=== PATIENT | female | born 1960 | race Caucasian/White ===

== ENCOUNTER → 2017-04-29 | Outpatient (CLI) | payer BC, SELFPAY | PROVIDERS: Family Provider Family Medicine; Visit Provider Nurse Practitioner Obstetrics & Gynecology | DX: Z12.31 Encounter for screening mammogram for malignant neoplasm of breast (principal) | CPT/HCPCS: 77067; G0202 ==

== ENCOUNTER → 2017-07-25 10:57 | Outpatient (POV) | payer BC, SELFPAY | PROVIDERS: Visit Provider Physician Assistant | DX: Z00.00 Encounter for general adult medical examination without abnormal findings (principal) ==

== ENCOUNTER → 2018-07-12 15:34 | Outpatient (CLI) | payer BC, SELFPAY ==
--- NOTE | 2018-07-12 15:42 | MM_ITS ---
MM Dig screening mamm BI w/CAD CAD Screening COMPARISON: Digital mammograms with CAD 04/29/2017 and 04/26/2016 INDICATION: There is a history of breast cancer in the patient's sister diagnosed in her 40s and in maternal aunts. TECHNIQUE: Standard CC and MLO images were obtained. R2 CAD reviewed. FINDINGS: Moderate diffuse fiber glandular densities are seen in both breasts. There are possible new nodular densities in the central portion of the right breast. Recommend the patient return for 6 spot compression MLO and CC views and ultrasound may be necessary as well. There are few scattered benign-appearing microcalcifications in each breast. There are no suspicious microcalcifications. IMPRESSION: Moderate diffuse breast density with possible asymmetric densities right breast BI-RADS Category: 0 Need Additional Imaging Evaluation RECOMMENDED FOLLOW-UP: IMM - IMMEDIATE FOLLOW-UP RECOMMENDED (A letter has been sent to the patient regarding results of the study.)
== END ==
PROVIDERS: PCP Family Medicine; Visit Provider Nurse Practitioner Obstetrics & Gynecology
DX: Z12.31 Encounter for screening mammogram for malignant neoplasm of breast (principal)
CPT/HCPCS: 77067

== ENCOUNTER → 2018-07-28 13:12 | Outpatient (CLI) | payer BC, SELFPAY ==
--- NOTE | 2018-07-28 13:15 | MM_ITS ---
MM Dig mamm DX unilat RT CAD, US breast RT complete Ordering Physician: Deangelo Alamo MD Patient Age: 58 years Female COMPARISON: 07/12/2018, 04/29/2017 INDICATION: Follow-up abnormal screening study TECHNIQUE: Problem-solving views performed of the right breast along with right breast ultrasound FINDINGS: There is average fibroglandular tissue. Scattered benign-appearing calcifications are present. An area of asymmetry noted in the medial aspect of the right breast was noted initially but does appear to compress out on an additional spot compression view more posterior. There was some asymmetric density in the deep aspect of the right breast medially which did appear to compress out on a focal spot compression view. No malignant appearing mass or malignant appearing microcalcification is evident. Right breast ultrasound: There is a 5 mm hypoechoic nodule at 6:00. The correa are slightly thickened and there is posterior acoustical shadowing. While this may only represent a cyst, one cannot exclude a solid lesion especially with posterior acoustical shadowing. Ultrasound-guided fine-needle aspiration suggested. If this does not aspirate and core biopsy or mammotome biopsy could be performed. A 4 mm cyst is present at 9:00. IMPRESSION: Asymmetric areas in the right breast do appear to compress out on the focal spot compression views. There is a complex nodule at 6:00 on the ultrasound for which fine needle aspiration is suggested BI-RADS Category: 4 Suspicious Abnormality-Biopsy Considered RECOMMENDED FOLLOW-UP: BIO - BIOPSY RECOMMENDED A letter has been sent to the patient regarding results of the study.)
== END ==
PROVIDERS: PCP Family Medicine; Visit Provider Nurse Practitioner Obstetrics & Gynecology
DX: R92.8 Other abnormal and inconclusive findings on diagnostic imaging of breast (principal)
CPT/HCPCS: 76641; 77065

== ENCOUNTER → 2018-08-17 09:57 | Outpatient (CLI) | payer BC, SELFPAY ==
--- NOTE | 2018-08-17 10:29 | US_ITS ---
US FNA Breast HISTORY: Complex nodule 6:00 region the right breast ORDERING PHYSICIAN: Deangelo Alamo MD PATIENT AGE: 58 years COMPARISON: 07/28/2018 TECHNIQUE: Following obtaining informed consent, using aseptic technique and local anesthesia with buffered lidocaine, fine-needle aspiration was performed of the nodule of interest using sonographic guidance in the 6:00 region right breast near the nipple.. One pass was made into the nodule with a 27-gauge needle. No visible aspirate obtained. Specimen was given to cytology. Following this, a small incision was made and a core biopsy was performed. 2 cores were obtained one with a 19-gauge needle and one with an 18-gauge needle The patient tolerated the procedure well without evidence of immediate complications and left the ultrasound suite in stable condition. CYTOLOGY:Negative for malignant cells Pathology core biopsy: No evidence of malignancy. Benign fibrous colonized stroma IMPRESSION: Uneventful fine needle aspiration and core biopsy of right breast showing benign findings. Recommend 6 month sonographic follow-up to confirm stability
== END ==
PROVIDERS: PCP Family Medicine; Visit Provider Nurse Practitioner Obstetrics & Gynecology
DX: N63.10 Unspecified lump in the right breast, unspecified quadrant (principal)
CPT/HCPCS: 19083; 10005; 76642; 76942

== ENCOUNTER → 2019-04-09 13:51 | Outpatient (CLI) | payer BC, SELFPAY ==
--- NOTE | 2019-04-09 14:15 | US_ITS ---
PROCEDURE: US BREAST RT COMPLETE CLINICAL INDICATION: 6 MOS FU TO BX Follow-up in a COMPARISON: FNABRE US FNA Breast from 08/17/2018 FINDINGS: At 6 o'clock there is a 4 x 2 mm cyst. This is smaller than when compared to the previous exam. No other significant anomalies are evident. IMPRESSION: Benign-appearing cyst at 6 o'clock slightly smaller compared to the previous study. BI-RADS category 2 benign findings. Recommend resume screening mammogram July 2019 Dictated by: Will Sawant MD 04/17/2019 11:23 Electronically signed by Will Sawant MD in [place] 04/17/2019 11:23
== END ==
PROVIDERS: PCP Family Medicine; Referring Provider Nurse Practitioner Obstetrics & Gynecology; Visit Provider Nurse Practitioner Obstetrics & Gynecology
DX: R92.8 Other abnormal and inconclusive findings on diagnostic imaging of breast (principal)
CPT/HCPCS: 76641

== ENCOUNTER → 2020-05-05 10:47 | Outpatient (CLI) | payer BC, SELFPAY ==
--- NOTE | 2020-05-05 10:47 | MM_ITS ---
PROCEDURE: MM DIG SCREENING MAMM BI W/CAD Digital Breast Tomosynthesis Included CLINICAL INDICATION: Routine Screening Mammogram Is history of breast cancer in patient's sister and paternal aunts. There has been a previous biopsy right breast for benign disease. COMPARISON: MG DMSB DIG MAMM-SCREEN CARINA W/CAD from 04/29/2017 MG SCBI MM Dig screening mamm BI w/CAD from 07/12/2018 MG DXRT MM Dig mamm DX unilat RT CAD from 07/28/2018 TECHNIQUE: Standard CC and MLO images and 3D Tomosynthesis was obtained. R2 CAD reviewed. FINDINGS: Scattered diffuse fibroglandular densities are seen in both breasts. Stable slightly asymmetric glandular elements are seen outer quadrant right breast. There are scattered microcalcifications in each breast many of which are cutaneous. There is no new or suspicious lesion in either breast no suspicious microcalcifications. IMPRESSION: Stable exam with no suspicious lesions seen BI-RAD Category: 2 Benign Finding(s) FOLLOW-UP: 1YR 1 Year Follow-up (A letter has been sent to the patient regarding results of the study.) Dictated by: Dr. Renato Mccurdy MD 05/07/2020 14:51 Dr. Renato Mccurdy MD in [place] 05/07/2020 14:51
== END ==
PROVIDERS: PCP Family Medicine; Visit Provider Nurse Practitioner Obstetrics & Gynecology
DX: Z12.31 Encounter for screening mammogram for malignant neoplasm of breast (principal)
CPT/HCPCS: 77063; 77067

== ENCOUNTER → 2020-07-10 12:51 | Outpatient (CLI) | payer BC, SELFPAY ==
--- NOTE | 2020-07-10 12:54 | XR_ITS ---
PROCEDURE: XR DEXA AXIAL SKELETON CLINICAL HISTORY: POST MENOPAUSAL COMPARISON: No exams were available for comparison FINDINGS: The right hip BMD is 0.824 with a T-score of -0.2. The left hip BMD is 0.762 with a T-score of -0.8. The lumbar spine BMD is 1.067 with a T-score of 0.2. IMPRESSION: This patient is considered normal according to the World Health Organization criteria. Fracture risk is low. Based on these results a follow-up exam is recommended in 2 year. Dictated by: Will Sawant MD 07/11/2020 03:51 Will Sawant MD in [place] 07/11/2020 06:20
== END ==
PROVIDERS: PCP Family Medicine; Visit Provider Physician Assistant
DX: Z13.820 Encounter for screening for osteoporosis (principal); Z78.0 Asymptomatic menopausal state
CPT/HCPCS: 77080

== ENCOUNTER → 2020-07-17 12:05 | Outpatient (CLI) | payer BC, SELFPAY ==
--- NOTE | 2020-07-17 12:08 | XR_ITS ---
PROCEDURE: XR FOOT WT BEARING RT 3V CLINICAL INDICATION: pain COMPARISON: No exams were available for comparison FINDINGS: No fracture or dislocation. No lytic or blastic change. There is normal mineralization. Minimal osteoarthritic change 1st MTP joint with minimal hypertrophy of the distal aspect of the 1st metatarsal. Other findings:None. 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
--- NOTE | 2020-07-17 12:08 | XR_ITS ---
PROCEDURE: XR FOOT WT BEARING LT 3V CLINICAL INDICATION: pain COMPARISON: No exams were available for comparison FINDINGS: No fracture or dislocation. No lytic or blastic change. There is normal mineralization. The joint spaces are well-preserved. No significant degenerative/arthritic changes. No erosive changes evident. Other findings:None. IMPRESSION: No acute findings. Dictated by: Will Sawant MD 07/17/2020 16:53 Will Sawant MD in [place] 07/17/2020 16:53
== END ==
PROVIDERS: PCP Family Medicine; Visit Provider Podiatrist
DX: M79.672 Pain in left foot (principal); M79.671 Pain in right foot
CPT/HCPCS: 73630

== ENCOUNTER → 2020-08-13 09:53 | Outpatient (CLI) | payer BC, SELFPAY ==
[2020-08-13 11:00] LABS: Coronavirus 19 IgG Antibody Negative (Negative); Coronavirus 19 IgM Antibody Negative (Negative)
== END ==
PROVIDERS: Visit Provider Internal Medicine Gastroenterology
DX: Z01.812 Encounter for preprocedural laboratory examination (principal); Z20.822 Contact with and (suspected) exposure to COVID-19; Z12.11 Encounter for screening for malignant neoplasm of colon
CPT/HCPCS: 36415; 86328

== ENCOUNTER 2020-08-15 08:29 | Day surgery (SDC) | payer BC, SELFPAY ==
[2020-08-05 10:32] VITALS: BMI 33.8
[2020-08-15 08:47] VITALS: BP 111/91; PULSE 81; RESP 16; TEMP 36.5; O2SAT 95
[2020-08-15 09:28] VITALS: O2SAT 97
--- NOTE | 2020-08-15 09:39 | HMH.ANESCL ---
[facility] Anesthesia Checklist - Structural Data Admitted From: Home Planned Operative Procedure/s: colonoscopy Consent for Planned Operative Procedure(s) Verified: Yes - Airway Assessment C-Spine Mobility Assessed: Yes TMJ Mobility Assessed: Yes Dentition: Good Dentition - Neurological Assessment Level of Consciousness: Awake, Alert, Appropriate - Anesthesia Plan Anesthesia Risk discussed: Yes Anesthesia Plan: Verified ASA Class: II Anesthesia Type: MAC [facility] History I have reviewed the patient's past medical history: Yes Medical History: Reports:: Hyperlipidemia Denies:: Cancer, Diabetes Mellitus Type 1, Diabetes Mellitus Type 2, Internal Pacemaker, MRSA, Seizures *Have you ever received a pneumonia vaccine?: Yes *Have you received a flu vaccine this season?: Yes Other Medical History: Reports: Anemia Anesthesia experience/problems:: none Laterality Cases: Right: Lumpectomy, Bilateral: Other Other Surgeries: Yes: Dilation and Curettage. No: Pacemaker Amputation: No Fractures: Yes - *Social History Last grade of school completed: 11th or 12th Smoking Status: Never smoker Alcohol Intake: never Substance Use Type: denies use *Occupational Status:: employed Housing: house Household Members: spouse *Travel in the last 8 weeks: None Family Hx:: Diabetes, Hypertension, Cancer
--- NOTE | 2020-08-15 09:59 | P.PCN_ITS ---
[facility] Procedure Note Procedure Note:: Colonoscopy Procedure Report: Colonoscopy with cold snare polypectomy Endoscopist: Italo Magdaleno II, MD Referring physician: Susan SANTIAGO/Mode Betts MD Date of Procedure: August 15, 2020 Equipment: Olympus 190 variable stiffness pediatric colonoscope Sedation: MAC sedation Indication: Mrs. Baker is a 60-year-old female who is here for follow-up screening/surveillance colonoscopy. She did have a normal colonoscopy at age 48. She reports no abdominal pain, weight loss, change in her bowel habits or rectal bleeding. She reports no family history of colon cancer. Procedure: Prior to the procedure, a history and physical exam was performed, and patient's medications and allergies were reviewed. The risks, benefits and alternatives of the sedation and procedure were discussed with the patient. All questions were answered and informed consent was obtained. The patient was brought to the procedure room. Patient identification and proposed procedure were verified by the physician and the nurse. The patient was placed in a left lateral decubitus position and the scope was passed under direct vision. Throughout the procedure, the patient's blood pressure, pulse, and oxygen saturations were monitored continuously. The colonoscopy was accomplished without difficulty. The patient tolerated the procedure well. Findings: On digital rectal examination there was normal rectal tone. There were no external hemorrhoids. The colonoscope was introduced through the anal canal to the rectum and advanced to the cecum. The ileocecal valve and appendiceal orifice were identified. The scope was advanced a short distance into the ileum which appeared grossly normal. The scope was then withdrawn into the colon. The cecum, ascending and transverse colon were grossly normal. There was a 4 mm polyp in the descending colon that was removed via cold snare polypectomy. The remaining sigmoid and rectum were grossly normal. There were no other mucosal abnormalities identified. Upon retroflexion within the rectum there were grade 1 internal hemorrhoids.The preparation was excellent throughout with [place] Preparation Score of 9. The cecal time was 12 minutes. Impression: 1. Diminutive descending colon polyp 2. Grade 1 internal hemorrhoids Plan: I will follow up the polyp pathology and recommend repeat colonoscopy again in 7-10 years based upon the polyp histology. I would encourage bulk fiber supplementation on a long-term daily maintenance basis.
[2020-08-15 10:00] VITALS: BP 92/58; PULSE 87; RESP 18; TEMP 36.5; O2SAT 92
[2020-08-15 10:10] VITALS: BP 94/62; PULSE 85; RESP 18; O2SAT 95
[2020-08-15 10:20] VITALS: BP 105/69; PULSE 85; RESP 18; O2SAT 96
[2020-08-15 10:30] VITALS: BP 112/81; PULSE 68; RESP 18; O2SAT 97
== END 2020-08-15 10:32 | disposition home or self-care (01) ==
LOC: OUTP 08:31
PROVIDERS: PCP Family Medicine; Visit Provider Internal Medicine Gastroenterology
PROC: 0DJD8ZZ Inspection of Lower Intestinal Tract, Via Natural or Artificial Opening Endoscopic (ICD-10-PCS; CPT 45378; principal; 2020-08-15 09:30)
DX: Z12.11 Encounter for screening for malignant neoplasm of colon (principal); K63.5 Polyp of colon; K64.0 First degree hemorrhoids; E78.5 Hyperlipidemia, unspecified; D64.9 Anemia, unspecified; Z83.3 Family history of diabetes mellitus; Z82.49 Family history of ischemic heart disease and other diseases of the circulatory system; Z80.9 Family history of malignant neoplasm, unspecified; Z88.0 Allergy status to penicillin; Z79.82 Long term (current) use of aspirin; Z79.899 Other long term (current) drug therapy
CPT/HCPCS: 45385

== ENCOUNTER 2021-02-27 15:30 | Outpatient (RCR) | payer BC, SELFPAY ==
--- NOTE | 2021-02-09 15:34 | HMH.PTOPEV ---
PT Outpatient Evaluation Rehab PT Outpatient Evaluation Start: 02/09/21 15:23 Freq: Status: Active Protocol: Document 02/09/21 15:24 JOSE JUAN (Rec: 02/09/21 15:34 PHORBOBBY [id number]) Electronically Signed By Enrique Godoy, PT 02/09/21 15:24 Outpatient Therapy Subjective History Subjective History Pt is 60 yowf who presents with c/o pain in the R heel x ~ 7 mos with insidious onset of symptoms. She reports pain is worst with first putting weight through her foot in the morning. She also reports no pain at rest, pnly with WBing. She reports injection given 1 wk ago in the heel has significantly reduced her pain . She reports no significant PMH. Chief Complaint Pain Symptom Type Sharp Symptoms Relieved By Rest/Positioning Symptoms Aggravated By Standing,Walking Prior Functional Limitations None Current Functional Limitations Standing,Walking Symptom Description Activity Dependent Level of pain today (0-10) 3 Pain scale - at its worst (0-10) 10 Ankle/Foot Eval Gait Observation General Gait Pattern Observation Antalgic Gait Palpation Tenderness right Ankle/Foot Palpation Findings Tenderness Ankle/Foot Palpation Overall Comment R heel medial calcaneal tubercle. ROM Ankle/Foot Dorsiflexion w/Knee Extended 0-15 Active Range Motion (degrees) Ankle/Foot Plantar Flexion Active Range 0-50 of Motion (degrees) Ankle/Foot Eversion Active Range of 0-15 Motion (degrees) Ankle/Foot Inversion Active Range of 0-37 Motion (degrees) MMT Ankle Dorsiflexion Strength Grade 5 Normal Ankle Plantarflexion Strength Grade 5 Normal Foot Eversion Strength Grade 5 Normal Foot Inversion Strength Grade 5 Normal Outpatient Therapy Assessment Impairments Problems/Impairmments Palpation Tenderness,Impaired Range of Motion,Impaired Strength,Impaired Gait Pattern ,Impaired Walking,Impaired Standing,Subjective C/O Pain, Impaired Self Care/Self Management Prognosis Rehab Potential Good Clinical Impression Consistent with Diagnosis Yes Short Term Goals Number of Weeks 4 Decreased Palpation Tenderness Yes Increase Ability to Stand Yes Decrease Subjective C/O Pain
== END 2021-02-27 15:35 | disposition home or self-care (01) ==
LOC: PT 15:30
PROVIDERS: PCP Family Medicine; Visit Provider Podiatrist
DX: M72.2 Plantar fascial fibromatosis (principal); M84.374D Stress fracture, right foot, subsequent encounter for fracture with routine healing; M79.671 Pain in right foot
CPT/HCPCS: 97033; 97035; 97110; 97163

== ENCOUNTER → 2021-03-12 14:34 | Outpatient (CLI) | payer BC, SELFPAY ==
[2021-03-12 15:45] LABS: Basophils % 0.7 % (0.1-2.0); Eosinophils # 0.2 K/mm3 (0.0-0.4); Eosinophils % 3.2 % (0.1-12.0); Hematocrit 40.3 % (37.0-47.0); Hemoglobin 13.6 g/dL (12.2-16.2); Lymphocytes # 1.8 K/mm3 (0.7-4.5); Lymphocytes % 31.2 % (10-50); Mean Corpuscular HGB Conc 33.8 g/dL (31.8-35.4); Mean Corpuscular Hemoglobin 31.4 pg (27.0-31.2); Mean Platelet Volume 8.9 fl (7.4-10.4); Monocytes # 0.4 K/mm3 (0.1-1.0); Monocytes % 6.5 % (1.7-9.3); Neutrophils # 3.3 K/mm3 (1.8-7.8); Neutrophils % 58.4 % (37.0-80.0); Platelet Count 296 K/mm3 (142-424); Red Blood Count 4.33 M/mm3 (4.20-5.40); Red Cell Distribution Width 13.4 % (11.5-17.5); White Blood Count 5.7 K/mm3 (4.8-10.8)
[2021-03-12 16:38] LABS: Strep Scrn Group A (Rapid) Negative (Negative)
== END ==
PROVIDERS: PCP Physician Assistant; Visit Provider Physician Assistant
DX: Z20.822 Contact with and (suspected) exposure to COVID-19 (principal)
CPT/HCPCS: 36415; 85025; 87430; C9803; U0003; U0005

== ENCOUNTER → 2021-05-06 08:12 | Outpatient (CLI) | payer BC, SELFPAY ==
--- NOTE | 2021-05-06 08:12 | MM_ITS ---
PROCEDURE INFORMATION: Exam: MG Bilateral Screening 3D Mammography Exam date and time: 05/06/2021 8:12 AM Age: 61 years old Clinical indication: Screening mammogram TECHNIQUE: Imaging protocol: Bilateral screening tomosynthesis and 2D mammography including computer-aided detection (CAD) when performed. COMPARISON: 1. MG MM DIG SCREENING MAMM BI W/CAD 05/05/2020 11:00 AM 2. MG DXRT MM Dig mamm DX unilat RT CAD 07/28/2018 2:26 PM 3. MG SCBI MM Dig screening mamm BI w/CAD 07/12/2018 3:53 PM 4. MG DMSB DIG MAMM-SCREEN CARINA W/CAD 04/29/2017 8:21 AM FINDINGS: MAMMOGRAPHY: Breast composition: There are scattered areas of fibroglandular density. Mass: None. Architectural distortion: No new or suspicious architectural distortion. Calcifications: No new or suspicious calcifications are present Asymmetric density: No new or suspicious asymmetric density is present Skin thickening: None. Axillary adenopathy: None. IMPRESSION: No mammographic evidence of malignancy. Recommend annual screening mammography unless otherwise clinically indicated. ASSESSMENT: BI-RADS category 1: Negative
== END ==
PROVIDERS: PCP Physician Assistant; Visit Provider Nurse Practitioner Obstetrics & Gynecology
DX: Z12.31 Encounter for screening mammogram for malignant neoplasm of breast (principal)
CPT/HCPCS: 77063; 77067

== ENCOUNTER 2022-04-12 16:53 | Emergency (ER) | payer BC, SELFPAY ==
[2022-04-12 18:15] VITALS: BP 147/91; PULSE 84; RESP 19; TEMP 36.6; O2SAT 98; BMI 32.4
[2022-04-12 18:22] LABS: UTC Strep Screen (Rapid) Negative (Negative)
--- NOTE | 2022-04-12 18:48 | EXP.UTC ---
Discharge Plan Disposition Patient Disposition: Home, Self-Care Condition: Good Prescriptions Prescriptions: New doxycycline hyclate 100 mg capsule 100 mg PO BID Qty: 20 0RF prednisone 10 mg tablet 10 mg PO BID 5 Days Qty: 10 0RF benzonatate 100 mg capsule 100 mg PO TID PRN (Reason: cough) Qty: 30 0RF No Action atorvastatin 10 mg tablet 10 mg PO ONCE lisinopril 2.5 mg tablet 2.5 mg PO DAILY Label Comments: TAKE 1 TABLET BY MOUTH EVERY DAY Referrals Follow up/Referrals: Susan Adams PA [Primary Care Provider] - See instructions Activity Restrictions/Add. Instructions Additional Instructions/Restrictions: *Monitor Temp, Over the counter Motrin or Tylenol as directed/as needed Tylenol every 4 hours and Motrin every 6 hours (as long as your family doctor has told you that you can take it) for fever or pain. and straight to ER if unable to lower temp less than 101.0 after medication given *Warm salt water gargles may help to soothe the throat *Throat Lozenges? *Warm fluids like tea with honey may help to soothe the throat? *Sleep elevated *Humidifier/Vaporizer Take Medication as prescribed Your throat swab was sent for culture. Those results are typically sent to your primary care. Be sure to follow up in 2-3 days with your family doctor/primary care physician if no improvement so they can review those result and treat if necessary. If you don?t have a primary care doctor, I recommend you get one but in the mean time, you will have to return to a walk in clinic Follow up IMMEDIATELY for new or worsening symptoms or no Noticeable improvement over the next 48-72 hours. 911 for difficulty breathing or swallowing Clinical Impressions Clinical Impression: Sinusitis Qualifiers: Sinusitis location: unspecified location Chronicity: unspecified Qualified Code(s): J32.9 - Chronic sinusitis, unspecified Instructions Patient Instructions: Sinusitis, DI for Sinusitis, Doxycycline Discharge ED Provider: Sommer Stewart [facility] General Stated complaint: cough, congestion, sore throat, bilateral ear pain Mode of Arrival: Ambulatory Source of Information: Patient Limitations: No Limitations Time Seen by Provider: 04/12/22 18:52 Description of Symptoms (Recalled from Triage Doc. by RN): PATIENT C/O COUGH, SINUS PRESSURE, EAR ACHE AND SORE THROAT SINCE TUESDAY HEENT Symptoms (Recalled from RN notes): Yes Resp Symptoms (Recalled from RN notes): Yes Skin Symptoms (Recalled from RN notes): No MS Symptoms (Recalled from RN notes): No Functional Status (Recalled from RN notes): WNL History of Present Illness Provider Complaint: Patient states that she has been having sinus congestion and pressure on and off for about week that has got worse over the last few days States that she is having pain and pressure behind her eyes, drainage in the back of her throat and at times she is coughing up mucous States that today the sinus congestion was worse so she came in Related Data Home Medications Medication Instructions Recorded Confirmed atorvastatin 10 mg tablet 10 mg PO ONCE Cholesterol 06/15/17 04/12/22 lisinopril 2.5 mg tablet 2.5 mg PO DAILY Hypertension 12/04/20 04/12/22 Previous Rx's Medication Instructions Recorded benzonatate 100 mg capsule 100 mg PO TID PRN cough #30 caps 04/12/22 doxycycline hyclate 100 mg capsule 100 mg PO BID #20 caps 04/12/22 prednisone 10 mg tablet 10 mg PO BID 5 days #10 tabs 04/12/22 Allergies Allergy/AdvReac Type Severity Reaction Status Date / Time Penicillins Allergy Unknown Verified 05/06/21 09:47 Worker's Comp Is this a Worker's Comp case?: No [facility] Disclaimer: The information contained in this section may have been updated after the patient was seen, as this information can be updated by other users. Medical History (Updated 04/12/22 @ 18:58 by Sommer Stewart APRN) Hyperlipidemia Hypertension Migraine
[2022-04-12 19:11] VITALS: BP 147/91; PULSE 84; RESP 19; TEMP 36.6; O2SAT 98
== END 2022-04-12 19:12 | disposition home or self-care (01) ==
PROVIDERS: Emergency Provider Nurse Practitioner; PCP Physician Assistant
DX: J32.9 Chronic sinusitis, unspecified (principal)
CPT/HCPCS: 87880; 99213; G0463

== ENCOUNTER → 2022-05-07 08:10 | Outpatient (CLI) | payer BC, SELFPAY ==
--- NOTE | 2022-05-07 08:10 | MM_ITS ---
PROCEDURE INFORMATION: Exam: MG Bilateral Screening 3D Mammography Exam date and time: 05/07/2022 8:20 AM Age: 62 years old Clinical indication: Screening. Her sister and paternal aunt had breast cancer. History of benign right excisional biopsy. TECHNIQUE: Imaging protocol: Bilateral Screening tomosynthesis and 2D mammography including computer-aided detection (CAD) when performed. COMPARISON: 1. MG MM DIG SCREENING MAMM BI W/CAD 05/06/2021 8:18 AM 2. MG MM DIG SCREENING MAMM BI W/CAD 05/05/2020 11:00 AM 3. MG DXRT MM Dig mamm DX unilat RT CAD 07/28/2018 2:26 PM 4. MG SCBI MM Dig screening mamm BI w/CAD 07/12/2018 3:53 PM FINDINGS: MAMMOGRAPHY: Breast composition: There are scattered areas of fibroglandular density. Mass: None. Architectural distortion: None. Calcifications: No suspicious calcifications. Asymmetric density: None. Skin thickening: None. Axillary adenopathy: None. IMPRESSION: No mammographic evidence of malignancy. Annual screening is recommended unless otherwise clinically indicated. ASSESSMENT: BI-RADS Category 1: Negative
== END ==
PROVIDERS: PCP Physician Assistant; Visit Provider Nurse Practitioner Obstetrics & Gynecology
DX: Z12.31 Encounter for screening mammogram for malignant neoplasm of breast (principal)
CPT/HCPCS: 77063; 77067

== ENCOUNTER 2022-05-07 08:53 | Emergency (ER) | payer BC, OTHER, SELFPAY ==
--- NOTE | 2022-05-07 09:17 | XR_ITS ---
FINAL REPORT CLINICAL HISTORY: cough since March COMPARISON: 05/25/2016 FINDINGS: TWO-VIEW CHEST The heart size is normal. The mediastinum is normal. The lungs are clear. There is no pneumothorax. There is mild rightward curvature of the thoracic spine with mild degenerative change. IMPRESSION: No acute cardiopulmonary process. Reviewed, Interpreted and Dictated by Dejon Diego III, MD Transcribed by Ashlee Antonio Authenticated and [facility]
[2022-05-07 09:24] VITALS: BP 157/94; PULSE 81; RESP 16; TEMP 36.7; O2SAT 97; BMI 32.9
--- NOTE | 2022-05-07 09:44 | EXP.UTC ---
Discharge Plan Disposition Patient Disposition: Home, Self-Care Condition: Good Prescriptions Prescriptions: New guaifenesin [Mucinex] 600 mg tablet extended release 12hr 600 mg PO BID PRN (Reason: cough) Qty: 20 0RF azithromycin [Zithromax Z-Stanislav] 250 mg tablet See Rx Instructions .ROUTE .COMPLEX 5 Days Qty: 6 0RF Rx Instructions: For 250 mg dose pack: take 500 mg today (day 1), then 250 mg for 4 days (days 2-5) fluticasone propionate [Flonase Allergy Relief] 50 mcg/actuation spray,suspension 1 spray intranasal DAILY Qty: 16 0RF Rx Instructions: administer into each nostril No Action atorvastatin 10 mg tablet 10 mg PO ONCE lisinopril 2.5 mg tablet 2.5 mg PO DAILY Label Comments: TAKE 1 TABLET BY MOUTH EVERY DAY doxycycline hyclate 100 mg capsule 100 mg PO BID Qty: 20 0RF prednisone 10 mg tablet 10 mg PO BID 5 Days Qty: 10 0RF benzonatate 100 mg capsule 100 mg PO TID PRN (Reason: cough) Qty: 30 0RF Referrals Follow up/Referrals: Susan Adams PA [Primary Care Provider] - See instructions Activity Restrictions/Add. Instructions Additional Instructions/Restrictions: Start antibiotic today. Be sure to complete entire prescription even if feeling better Monitor temp. Tylenol every 4 hours as needed and / or ibuprofen every 6 hours as needed ( As long as your primary care physician has told you that it ok to take both. For fever/aches/pains ER if no less than 101 despite Tylenol or Motrin Humidifier/vaporizer or hot steamy shower Mucinex for your cough and cough suppressant only at night you can try Delsym over the counter. Be sure to drink lots of water. Follow up IMMEDIATELY for new or worsening of symptoms OR no noticeable improvement over the next 48-72 hours. 911 immediately for any life threatening symptoms such as chest pain or difficulty breathing Clinical Impressions Clinical Impression: Sinusitis, Bronchitis Instructions Patient Instructions: DI for Sinusitis, Acute Bronchitis, Sinusitis Discharge ED Provider: Sommer Stewart [facility] [place] General Stated complaint: Congestion,Sore throat,Right earache Mode of Arrival: Ambulatory Source of Information: Patient Limitations: No Limitations Time Seen by Provider: 05/07/22 09:44 Description of Symptoms (Recalled from Triage Doc. by RN): pt comes in with c/o cough, sore throat, right ear pain, sinus infection. pt states she was seen here earlier this month but is not getting better after taking medication. HEENT Symptoms (Recalled from RN notes): Yes Resp Symptoms (Recalled from RN notes): Yes Skin Symptoms (Recalled from RN notes): No MS Symptoms (Recalled from RN notes): No Functional Status (Recalled from RN notes): n/a History of Present Illness Provider Complaint: Patient states that she was seen and treated earlier this month for sinus infection States that she completed the medication but still not feeling any better States that she has been having sinus pain and pressure, pain in her right ear, cough and at times she will cough up some green colored mucous States that today she was still not feeling any better so she came in Related Data Home Medications Medication Instructions Recorded Confirmed atorvastatin 10 mg tablet 10 mg PO ONCE Cholesterol 06/15/17 05/07/22 lisinopril 2.5 mg tablet 2.5 mg PO DAILY Hypertension 12/04/20 05/07/22 Previous Rx's Medication Instructions Recorded benzonatate 100 mg capsule 100 mg PO TID PRN cough #30 caps 04/12/22 doxycycline hyclate 100 mg capsule 100 mg PO BID #20 caps 04/12/22 prednisone 10 mg tablet 10 mg PO BID 5 days #10 tabs 04/12/22 azithromycin 250 mg tablet See Rx Instructions PO .COMPLEX 5 05/07/22 (Zithromax Z-Stanislav) days #6 tabs fluticasone propionate 50 1 spray intranasal DAILY #16 grams 05/07/22 mcg/actuation nasal spray,suspension (Flonase Allergy Relief) guaifenesin 600 mg tab
[2022-05-07 11:22] VITALS: BP 157/94; PULSE 81; RESP 16; TEMP 36.7
== END 2022-05-07 11:22 | disposition home or self-care (01) ==
PROVIDERS: Emergency Provider Nurse Practitioner; PCP Physician Assistant
DX: J40 Bronchitis, not specified as acute or chronic (principal); J32.9 Chronic sinusitis, unspecified
CPT/HCPCS: 71046; 99212; G0463

== ENCOUNTER 2023-05-18 08:49 | Outpatient (CLI) | payer BC, SELFPAY ==
--- NOTE | 2023-05-18 08:49 | MM_ITS ---
PROCEDURE INFORMATION: Exam: MG Bilateral Screening 3D Mammography Exam date and time: 05/18/2023 8:39 AM Age: 63 years old Clinical indication: Screening. Her sister and paternal aunt had breast cancer. History of benign right excisional biopsy. TECHNIQUE: Imaging protocol: Bilateral Screening tomosynthesis and 2D mammography including computer-aided detection (CAD) when performed. COMPARISON: 1. MG MM DIG SCREENING MAMM BI W/CAD 05/07/2022 8:20 AM 2. MG MM DIG SCREENING MAMM BI W/CAD 05/06/2021 8:18 AM 3. MG MM DIG SCREENING MAMM BI W/CAD 05/05/2020 11:00 AM 4. MG DXRT MM Dig mamm DX unilat RT CAD 07/28/2018 2:26 PM FINDINGS: MAMMOGRAPHY: Breast composition: There are scattered areas of fibroglandular density. Mass: None. Architectural distortion: None. Calcifications: No suspicious calcifications. Asymmetric density: None. Skin thickening: None. Axillary adenopathy: None. IMPRESSION: No mammographic evidence of malignancy. Annual screening is recommended unless otherwise clinically indicated. ASSESSMENT: BI-RADS Category 1: Negative
--- NOTE | 2023-05-18 08:56 | XR_ITS ---
FINAL REPORT TECHNIQUE: Bone mineral density was calculated of the lumbar spine and hip. CLINICAL HISTORY: POST MENOPAUSAL FINDINGS: Using L1-4, the bone mineral density of the spine is 1.112 g/cm2, corresponding to T-score of 0.6. Using the left hip, the bone mineral density of the femoral neck is 0.730 g/cm2, corresponding to a T-score of -1.1. Using the right hip, the bone mineral density of the femoral neck is 0.760 g/cm2, corresponding to a T-score of -0.8. NOTE: T-score: Standard deviation compared with peak bone mass of young adult mean. *Following the recommendations of the International Society of Bone densitometry, classification of hip BMD is based on the lower of two T-scores; total hip or femoral neck. IMPRESSION: Diminished bone mineral density consistent with low bone density. FRAX data reports fracture risk of 24% for major osteoporotic fracture and 1.0% for hip fracture. Reviewed, Interpreted and Dictated by Dejon Diego III, MD Transcribed by Ashlee Antonio Authenticated and . [facility]
== END 2023-05-18 23:59 ==
LOC: RAD 08:49
PROVIDERS: PCP Physician Assistant; Visit Provider Physician Assistant
DX: Z12.31 Encounter for screening mammogram for malignant neoplasm of breast (principal); Z78.0 Asymptomatic menopausal state
CPT/HCPCS: 77063; 77067; 77080

== ENCOUNTER 2023-06-10 10:41 | Outpatient (CLI) | payer BC, SELFPAY ==
--- NOTE | 2023-06-10 10:48 | XR_ITS ---
FINAL REPORT CLINICAL HISTORY: pain FINDINGS: Right foot Three views were obtained. There is no acute fracture or dislocation. There are moderate degenerative changes of the 1st metatarsophalangeal joint. Mild calcaneal spurring is noted. No soft tissue abnormality is identified. IMPRESSION: Moderate degenerative changes. Reviewed, Interpreted and Dictated by Van Guy MD Transcribed by Ashlee Antonio Authenticated and [facility]
[2023-06-10 18:36] LABS: Uric Acid 5.6 mg/dl (2.5-6.2)
[2023-06-10 18:42] LABS: C-Reactive Protein 3.2 mg/L (0-4)
[2023-06-10 18:56] LABS: Erythrocyte Sedimentation Rate 10 mm/hr (0-30)
[2023-06-10 19:27] LABS: Vitamin B12 994 pg/mL (239-931)
== END 2023-06-10 23:59 ==
LOC: RAD 10:42
PROVIDERS: PCP Physician Assistant; Visit Provider Student in an Organized Health Care Education/Training Program
DX: M79.671 Pain in right foot (principal); R20.0 Anesthesia of skin; R20.2 Paresthesia of skin; M54.50 Low back pain, unspecified; B96.89 Other specified bacterial agents as the cause of diseases classified elsewhere
CPT/HCPCS: 73630; 82607; 83036; 84550; 85651; 86140; 87086

== ENCOUNTER 2023-09-19 11:12 | Outpatient (CLI) | payer BC, SELFPAY ==
--- NOTE | 2023-09-19 11:26 | XR_ITS ---
FINAL REPORT CLINICAL HISTORY: cough, chest congestion COMPARISON: 05/07/2022 FINDINGS: Two views of the chest were obtained. The heart size and pulmonary vascularity are within normal limits. The mediastinum is normal. Bilateral pulmonary opacities are consistent with pneumonia. There is no pneumothorax. The bony thorax is intact. IMPRESSION: Bilateral pneumonia. Reviewed, Interpreted and Dictated by Dejon Diego III, MD Transcribed by Jelena Edwards Authenticated and [facility]
[2023-09-19 18:39] LABS: Coronavirus 19, PCR Not Detected (NotDetected); Influenza A, PCR Not Detected (NotDetected); Influenza B, PCR Not Detected (NotDetected)
== END 2023-09-19 23:59 | disposition home or self-care (01) ==
LOC: RAD 11:13
PROVIDERS: PCP Physician Assistant; Visit Provider Student in an Organized Health Care Education/Training Program
DX: R09.89 Other specified symptoms and signs involving the circulatory and respiratory systems (principal); R05.8 Other specified cough; J18.9 Pneumonia, unspecified organism
CPT/HCPCS: 71046; 87636

== ENCOUNTER 2023-09-29 15:38 | Outpatient (CLI) | payer BC, SELFPAY ==
--- NOTE | 2023-09-29 15:46 | XR_ITS ---
FINAL REPORT CLINICAL HISTORY: BILATERAL LOWER LOBE PNEUMONIA COMPARISON: 09/19/2023 FINDINGS: 2 views of the chest were obtained . The heart is normal in size. The mediastinum is within normal limits. The lungs are underinflated. There is a calcified granuloma noted in the right upper lobe. Lungs are otherwise clear. There is no pneumothorax. Osseous structures are unremarkable. IMPRESSION: No acute cardiopulmonary process. Reviewed, Interpreted and Dictated by Anthony Cortez MD Transcribed by Radha Rahman Authenticated and [facility]
== END 2023-09-29 23:59 | disposition home or self-care (01) ==
LOC: RAD 15:39
PROVIDERS: PCP Physician Assistant; Visit Provider Physician Assistant
DX: J18.9 Pneumonia, unspecified organism (principal)
CPT/HCPCS: 71046

== ENCOUNTER 2024-05-21 14:19 | Outpatient (CLI) | payer BC, SELFPAY ==
--- NOTE | 2024-05-21 14:20 | MM_ITS ---
PROCEDURE INFORMATION: Exam: MG Bilateral Screening 3D Mammography Exam date and time: 05/21/2024 2:14 PM Age: 64 years old Clinical indication: Screening exam. TECHNIQUE: Imaging protocol: Bilateral Screening tomosynthesis and 2D mammography including computer-aided detection (CAD) when performed. COMPARISON: 1. MG MM DIG SCREENING MAMM BI W/CAD 05/18/2023 8:39 AM 2. MG MM DIG SCREENING MAMM BI W/CAD 05/07/2022 8:20 AM FINDINGS: MAMMOGRAPHY: Breast composition: There are scattered areas of fibroglandular density. Mass: No suspicious masses. Architectural distortion: None. Calcifications: No suspicious calcifications. Asymmetric density: None. Skin thickening: None. Axillary adenopathy: None. IMPRESSION: No mammographic evidence of malignancy. Annual screening is recommended unless otherwise clinically indicated. ASSESSMENT: BI-RADS Category 1: Negative.
== END 2024-05-21 23:59 | disposition home or self-care (01) ==
LOC: RAD 14:20
PROVIDERS: PCP Physician Assistant; Visit Provider Nurse Practitioner Obstetrics & Gynecology
DX: Z12.31 Encounter for screening mammogram for malignant neoplasm of breast (principal)
CPT/HCPCS: 77063; 77067

== ENCOUNTER 2024-06-25 15:36 | Outpatient (CLI) | payer BC, SELFPAY ==
--- NOTE | 2024-06-25 15:40 | XR_ITS ---
FINAL REPORT CLINICAL HISTORY: LEFT FOOT PAIN COMPARISON: 07/17/2020 FINDINGS: AP, oblique and lateral views of the left foot were obtained. There is no acute fracture or dislocation. The joint spaces are preserved. There is a calcification adjacent to the fifth metatarsal head which was not present on the prior exam, likely just soft tissue calcification. There is no acute soft tissue abnormality. IMPRESSION: No acute abnormality of the left foot. Reviewed, Interpreted and Dictated by Ann Alvarez MD Transcribed by Cassidy Maya Authenticated and [facility]
== END 2024-06-25 23:59 | disposition home or self-care (01) ==
LOC: RAD 15:37
PROVIDERS: PCP Physician Assistant; Visit Provider Physician Assistant
DX: M79.672 Pain in left foot (principal)
CPT/HCPCS: 73630

== ENCOUNTER 2024-12-05 11:02 | Outpatient (CLI) | payer BC, SELFPAY ==
--- OUTSIDE RECORDS SUMMARY | 2024-06-21 11:00 | XMS_ITS ---
[facility] [address] [facility] [address] [place] [id number] Care Team Providers Care Training Generalist Name Role Phone Cindy Negro Primary Care Provider [phone] Kassy Ram Unavailable [phone] Susan Adams Unavailable [phone] Allergies Allergen (clinical drug ingredient) Drug/Non Drug Allergy documented on EMR Reaction Allergy Type Onset Date Status Substance with penicillin structure and antibacterial mechanism of action (substance) Penicillins Unknown Drug Allergy Active Results Component Value Reference Range Notes CBC Venipuncture (in house) Reviewed date:06/21/2024 05:06:27 PM Interpretation: Performing Lab: Notes/Report: wbc 5.1 3.5 - 10 lymph 30.3 15 - 50 mid 7.1 2 - 15 gran 62.6 35 - 80 rbc 4.34 3.5 - 5.5 hgb 13.3 11.5 - 16.5 hct 38.3 35 - 55 mcv 88.2 75 - 100 mch 30.6 25 - 35 mchc 34.7 31 - 38 platlet 254 100 - 400 P-Sed Rate (ESR) Reviewed date:06/27/2024 12:05:12 PM Interpretation: Performing Lab: Notes/Report: Test performed by [facility] [address] [place], [place] [address] [address], [address], [place] [address] Issac Burks MD, Corner Trimmer Operator CLIA: [id number] Erythrocyte Sedimentation Rate (ESR), Automated 2 <31 mm/hr P-Uric Acid Reviewed date:06/27/2024 12:05:12 PM Interpretation: Performing Lab: Notes/Report: Test performed by [facility] [address] [place], [place] [address] [address], [address], [place] [address] Issac Burks MD, Corner Trimmer Operator CLIA: [id number] Uric Acid 4.5 2.4-7.0 mg/dL REASON FOR VISIT pain in left foot Medications Medication SIG (Take, Route, Frequency, Duration) Notes Start Date End Date Status Medrol 4 MG as directed orally daily; Duration: 6 days 06/21/2024 Active Aspirin 81 MG 1 tab(s) orally once a day Active Lisinopril 2.5 MG 1 tablet orally once a day; Duration: 90 days Active Risedronate Sodium 35 MG 1 tablet at least 30 minutes before the first food or drink, other than water, of the day Orally once a week Active Leqvio 284 MG/1.5ML as directed Subcutaneous twice a year 03/25/2024 Active Probiotic Formula *Please review and pick correct strength-formulatio n from [employer] options. If intended option is not shown, discontinue and re-order from Quick Search* Active Vitamin D3 1000 IU 1 P.O. Q DAY *Please revie w and pick correct strength-formulatio n from [employer] options. If intended option is not shown, discontinue and re-order from Quick Search* Active Albuterol Sulfate HFA 108 (90 Base) MCG/ACT INHALE 1 PUFF INTO THE LUNGS NEEDED EVERY 4 HOURS; Duration: 30 Active Vital Signs Weight 000 lbs 06/21/2024 Blood pressure systolic 130 mm Hg 06/21/19 25 Blood pressure diastolic 78 mm Hg 025 Heart Rate 94 /min 06/21/2024 Height 61.50 in 06/21/2024 Encounters Encounter Location Date Provider Diagnosis [facility] [address] [facility] [address], [place] [id number] 06/21/2024 Susan Adams Left foot pain M79.6 72 Assessments Encounter Date Diagnosis (ICD Code) Assessment Notes Treatment Notes Treatment Clinical Notes Section Notes 06/21/2024 Left foot pain (ICD-10 - M79.672) This is likely gout. WBC is not elevated indication infection. Her father has a hx of gout. Will give a steroid shot today and start on a steroid dosepack tomorrow. Plan Of Treatment Medication Medication Name Sig Start Date Stop Date Notes Medrol 4 MG as directed orally daily; Duration: 6 days Treatment Notes Assessment Notes Left foot pain This is likely gout. WBC is not elevated indication infection. Her father has a hx of gout. Will give a steroid shot today and start on a steroid dosepack tomorrow. Next Appt Details Follow Up: via phone to repo rt test results, Reason: Medications Administered Medication Instructions Date of Administration Dosage Notes Dexamethasone 06/21/2024 1 mL Progress Notes * EMILY WALKERDOB:[birth year] (64 yo F)Acc No.[id number]:06/21/2024 Progress Notes Patient: EMILY BENTON Provider: RADHA White :1960 A ge:64 Y S ex:Female Date:06/21/2024 [address] [id number] Pcp:Cindy Negro Subjective: * Chief Complaints: * 1 . Pain in left foot. * HPI: A nkle/Foot: 64 year old female presents with c/o Pain P t is here with c/o pain in the left foot. Pt sts the pain started on Tuesday and sts it has gotten much worse. Pt sts she can hardly get her shoes on and sts it is very swollen. Pt sts she believes it may be gout. Pt sts she has not injured it in any way. worse with weight bearing worse with walking. * ROS: D ERMATOLOGY: no R atif. n o H luzmaria. G ASTROENTEROLOGY: no N ausea. n o V omiting. n o D iarrhea.? U ROLOGY: no D ifficulty urinating. n o B lood in urine. * Medical History: p lantar fasciitis right foot- dx by Dr. Patino 2020. * Surgical History: t onsillectomy , vaginal scraping by dr. zuleyma potter. * Family History: F ather: alive, diabetes, hypertension. M other: alive, COPD. P aternal aunt: breast and throat cancer. S iblings: sister breast cancer at 45 Y/O. 2 daughter(s) . . * Social History: C URRENT TOBACCO USE S moking Status: Patient does NOT smoke. C affeine: no. Marital Status: . Past smoking status: no, Smoking status: Does not smoke. Alcohol: No. * Medications: T aking Aspirin 81 MG Tablet Delayed Release 1 tab(s) orally once a day , Taking Vitamin D3 1000 IU 1 P.O. Q DAY , Notes to Pharmacist: *Please review and pick correct strength-formulation from [employer] options. If intended option is not shown, discontinue and re-order from Quick Search*, Taking Probiotic Formula , Notes to Pharmacist: *Please review and pick correct strength-formulation from [employer] options. If intended option is not shown, discontinue and re-order from Quick Search*, Taking Albuterol Sulfate HFA 108 (90 Base) MCG/ACT Aerosol Solution INHALE 1 PUFF INTO THE LUNGS NEEDED EVERY 4 HOURS , Taking Lisinopril 2.5 MG Tablet 1 tablet orally once a day , Taking Leqvio 284 MG/1.5ML Solution Prefilled Syringe as directed Subcutaneous twice a year , Taking Risedronate Sodium 35 MG Tablet 1 tablet at least 30 minutes before the first food or drink, other than water, of the day Orally once a week , Medication List reviewed and reconciled with the patient * Allergies: P enicillins. Objective: * Vitals: W t:000, Temp:97.9, BP:130/78, HR:94, O2 Sat:98% on RA, Nurse:latrice, Ht: 61.50. * Examination: G eneral Examination: General Appearance: N AD. C hest: n ormal shape and expansion. H eart: R SR. L ungs: c lear to auscultation. E xtremities: left foot with tenderness along the 1st MTP joint, the joint is swollen and very tender, it is hot to the touch and erythematous. Assessment: * Assessment: 1. L eft foot pain - M79.672 (Primary) Plan: * Treatment: Value Reference Range E rythrocyte Sedimentation Rate (ESR), Automated 2 <31 - mm/hr * Susan Adams 06/27/2024 12 :05:01 PM > discussed with pt ?LAB: P-Uric Acid (Collection Date & Time - 06/21/2024 02:32 PM)* Value Reference Range U samson Acid 4.5 2.4-7.0 - mg/dL * Susan Adams 06/27/2024 12 :05:01 PM > discussed with pt ?LAB: CBC Venipuncture (in house) (Collection Date & Time - 06/21/2024)* Value Reference Range w bc 5.1 3.5 - 10 * l ymph 30.3 15 - 50 * m id 7.1 2 - 15 * g ran 62.6 35 - 80 * r bc 4.34 3.5 - 5.5 * h gb 13.3 11.5 - 16.5 * h ct 38.3 35 - 55 * m cv 88.2 75 - 100 * m ch 30.6 25 - 35 * m chc 34.7 31 - 38 * p latlet 254 100 - 400 * Meghann Ruiz 06/21/2024 3:41: 27 PM > Provider reviewed results while patient in office.Susan Adams 06/21/2024 5:06:25 PM > Notes: This is likely gout. WBC is not elevated indication infection. Her father has a hx of gout. Will give a steroid shot today and start on a steroid dosepack tomorrow.?? * Therapeutic Injections: Dexamethasone : 1 mL (Route: Intramuscular) given by LATRICE Coombs on left gluteus (Left foot pain) * Procedure Codes: 9 47[address] [place], [address] CBC WITH AUTO DIFF, 98066 VENIPUNCT, ROUTINE*, J1100 Dexamethasone, 78211 ADMINISTRATION OF INJECTION, 3075F SYST BP GE 130 - 139MM HG, 3078F DIAST BP < 80 MM HG * Follow Up: v ia phone to report test results * Images: Billing Information: * Visit Code: 83114 Office Visit, Est Pt., Level 3. Modifiers: 25 * Procedure Codes: [address] [place] [address] CBC WITH AUTO DIFF. 15940 VENIPUNCT, ROUTINE*. J1100 Dexamethasone. 87194 ADMINISTRATION OF INJECTION. 3075F SYST BP GE 130 - 139MM HG. 3078F DIAST BP < 80 MM HG. * Electronic signature of RADHA Saldivar on 12/06/2024 at 10:44 AM EDT Sign off status: Pending * Provider: RADHA White Date: 0 06/21/2024 Generated for Chance darnell/Chuy/eTrupalismitting on: 0 12/06/2024 10:44 AM EDT History and Physical Notes * HPI (History of Present Illness) Category Sub-Category Detail Notes Category Not es Ankle/Foot Pain Pt is here with c/o pain in the left foot. Pt sts the pain started on Tuesday and sts it has gotten much worse. Pt sts she can hardly get her shoes on and sts it is very swollen. Pt sts she believes it may be gout. Pt sts she has not injured it in any way. worse with weight bearing worse with walking Examination Category Sub-Category Detail Notes Category Not es General Examination Heart: RSR Lungs: clear to auscultatio n Extremities: left foot with tende rness along the 1st MTP joint, the joint is swollen and very tender, it is hot to the touch and erythematous General Appearance: NAD Chest: normal shape and exp ansion
[2024-12-05 14:50] LABS: Coronavirus 19, PCR Not Detected (NotDetected); Influenza A, PCR Not Detected (NotDetected); Influenza B, PCR Not Detected (NotDetected)
--- OUTSIDE RECORDS SUMMARY | 2024-12-06 10:44 | XMS_ITS | Patient Health Record ---
[facility] Address [address] [facility] [address] [place] Ortega [id number] Care Team Providers Care Marketing Effectiveness Manager Name Role Phone MarkyCindy Primary Care Provider [phone] Kassy Ram Unavailable [phone] Susan Adams Unavailable [phone] Allergies Allergen (clinical drug ingredient) Drug/Non Drug [...] Interpretation: Performing Lab: Notes/Report: Test performed by [facility] [place] , [place] [address] Issac Burks MD, Circuit Manager CLIA: [id number] Erythrocyte Sedimentation Ra te (ESR), Automated 2 <31 mm/hr P-Uric Acid Reviewed date:06/27/2024 12:05:12 PM Interpretation: Performing Lab: Notes/Report: Test performed by [facility] [address] [place] [address], [place] [address] Issac Burks MD, Circuit Manager CLIA: [id number] Uric Acid 4.5 2.4-7.0 mg/dL Mammogram Reviewed date:05/24/2024 07:57:24 AM Interpretation: Performing Lab: Notes/Report: P-Vitamin D 25-Hydroxy Reviewed date:03/28/2024 01:13:28 PM Interpretation: Performing Lab: Notes/Report: Test performed by [facility] [address] [place] [address] , [place] [address] Issac Burks MD, Circuit Manager CLIA: [id number] Vitamin D 25-Hydroxy 60.0 30.0-100.0 ng/mL Interpretation of Vitamin D 25 OH: < 20 ng/mL - Deficiency 20 - 29 ng/mL - Insufficiency 30 - 100 ng/mL - Sufficiency > 100 ng/mL - Super-therapeutic- toxicity may occur above this level. Clinical correlation required. P-TSH reflex to FT4 Reviewed date:03/28/2024 01:13:28 PM Interpretation: Performing Lab: Notes/Report: Test performed by [facility] [address] [place] [address] , [address], [place] [address] Issac Burks MD, Circuit Manager CLIA: [id number] TSH reflex to FT4 0.93 0.43-5.25 mU/L P-Lipid Panel Reviewed date:03/28/2024 01:13:28 PM Interpretation: Performing Lab: Notes/Report: Test performed by [facility] [address] [place] [address] , [address], [place] [address] Issac Burks MD, Circuit Manager CLIA: [id number] Cholesterol 161 <200 mg/dL Triglycerides 135 <150 mg/dL HDL Cholesterol 62 >39 mg/dL Cholesterol / HDL Ratio 2.60 0.00-4.44 Ratio Non-HDL Cholesterol 99 <130 mg/dL LDL Cholesterol (Calculation) 72 <130 mg/dL LDL Cholesterol Levels* Less than 100 mg/dL Optimal 100 to 129 mg/dL Near Optimal/ Above Optimal 130 to 159 mg/dL Borderline High 160 to 189 mg/dL High 190 mg/dL and above Very High * Categories as recommended by the 2004 ATPIII guidelines LDL/HDL Ratio 1.2 <3.3 Ratio LDL Cholesterol Patient History Test Date: 04/22/2023 LDL Results: 70 Units: mg/dL % Change: - Test Date: 03/23/2024 LDL Results: 72 Units: mg/dL % Change: +2% P-CPK Reviewed date:03/28/2024 01:13:28 PM Interpretation: Performing Lab: Notes/Report: Test performed by [facility] [address] [place], [place] [address] [place] , [place] [address] Issac Burks MD, Circuit Manager CLIA: [id number] Creatine Kinase 95 20-180 U/L P-Comprehensive Metabolic Pa ramin (CMP) Reviewed date:03/28/2024 01:13:28 PM Interpretation: Performing Lab: Notes/Report: Test performed by [facility] [address] [place], [place] [address] [place] , [address], [place] [address] Issac Burks MD, Circuit Manager CLIA: [id number] Sodium 137 135-145 mmol/L Potassium 4.7 3.5-5.3 mmol/L Chloride 98 97-108 mmol/L CO2 25 22-32 mmol/L Glucose 85 65-99 mg/dL BUN 14 8-23 mg/dL Creatinine 0.59 0.50-1.00 mg/dL Calcium 9.9 8.6-10.4 mg/dL eGFR by Creatinine 99 >59 mL/min/1.73m2 Protein 6.9 6.0-8.3 g/dL Albumin 4.7 3.5-5.3 g/dL Alkaline Phosphatase 56 35-121 IU/L ALT (SGPT) 22 <5-47 IU/L AST (SGOT) 20 <5-40 IU/L Bilirubin, Total 1.0 <0.2-1.2 mg/dL A/G Ratio 2.1 1.1-2.5 P-Vitamin B12 Reviewed date:03/28/2024 01:13:28 PM Interpretation: Performing Lab: Notes/Report: Test performed by [facility] [address] [place] [address] , [address], [place] [address] Issac Burks MD, Circuit Manager CLIA: [id number] Vitamin B12 527 366-2932 pg/mL Glycohemoglobin A1c (in hous e) Reviewed date:03/28/2024 01:13:28 PM Interpretation: Performing Lab: Notes/Report: glycohemoglobin 5.9% 5 - 6.5 % CBC Venipuncture (in house) Reviewed date:03/26/2024 02:34:04 PM Interpretation: Performing Lab: Notes/Report: wbc 6.1 3.5 - 10 lymph 31.8% 15 - 50 mid 6.2% 2 - 15 gran 62.0% 35 - 80 rbc 4.87 3.5 - 5.5 hgb 14.9 11.5 - 16.5 hct 43.9 35 - 55 mcv 90.1 75 - 100 mch 30.5 25 - 35 mchc 33.9 31 - 38 platlet 265 100 - 400 Urinalysis - Inhouse Reviewed date:03/26/2024 09:05:16 AM Interpretation: Performing Lab: Notes/Report: X ray : Foot, left Reviewed date:06/27/2024 11:22:33 AM Interpretation:Negative Performing Lab: Notes/Report: Negative Medications Medication SIG (Take, Route, Frequency, Duration) Notes Start Date End Date Status Medrol 4 MG as directed orally daily; Duration: 6 days 06/21/2024 Active Aspirin 81 MG 1 tab(s) orally once a day Active Colchicine 0.6 MG TAKE 1 TABLET BY MOUTH EVERY DAY; Duration: 90 Active Probiotic Formula *Please review and pick correct strength-formulatio n from [employer] options. If intended option is not shown, discontinue and re-order from Quick Search* Active Vitamin D3 1000 IU 1 P.O. Q DAY *Please revie w and pick correct strength-formulatio n from [employer] options. If intended option is not shown, discontinue and re-order from Quick Search* Active Lisinopril 2.5 MG 1 tablet orally once a day; Duration: 90 days Active Albuterol Sulfate HFA 108 (90 Base) MCG/ACT INHALE 1 PUFF INTO THE LUNGS NEEDED EVERY 4 HOURS; Duration: 30 Active Risedronate Sodium 35 MG 1 tablet at least 30 minutes before the first food or drink, other than water, of the day Orally once a week Active Leqvio 284 MG/1.5ML as directed Subcutaneous twice a year 03/25/2024 Active Immunizations Vaccine Route Administration Date Status Comme nts COVID 19 Pfizer Unknown 09/06/2020 Administered COVID 19 Pfizer Unknown 09/27/2020 Administered DT, 7 YEARS OR OLDER IM Intramuscular 06/17/2006 Administe red H1N1 flu vaccine IM Intramuscular 05/07/2009 Administered Hepatitis A (adult) Unknown 01/18/2018 Administered Hepatitis A (adult) Unknown 08/15/2018 Administered PNEUMOVAX 23 VACCINE IM Intramuscular 08/14/2016 Administe red Prevnar (PCV20) IM Intramuscular 04/22/2023 Administered Shingrix Unknown 08/15/2018 Administered Shingrix Unknown 11/12/2018 Administered Tetanus Tdap-Adacel (over 7yrs) IM Intramuscular 09/23/2010 Administered Tetanus Tdap-Adacel (over 7yrs) IM Intramuscular 04/22/2023 Administered xFlu shot-36 months and older IM Intramuscular 04/03/2005 Administered Problems Problem Type SNOMED Code ICD Code Onset Dates Problem Status W/U Status Risk Notes Problem Essential hypertension (I10) Active confirmed Problem Hot flashes (524980169) Hot flashes (N95.1) Active confirmed Problem Mixed hyperlipidemia (812382031) Mixed hyperlipidemia (E78.2) Active confirmed Problem Fear of flying (071552648) Fear of flying (F40.243) Active confirmed Vital Signs Heart Rate 94 /min 06/21/2024 Blood pressure diastolic 78 mm Hg 06/21/2024 Height 61.50 in 06/21/2024 Blood pressure systolic 130 mm Hg 06/21/2024 Weight 000 lbs 06/21/2024 BMI 33.53 kg/m2 03/23/2024 Encounters Encounter Location Date Provider Diagnosis [facility] [address] [place], [place] [id number] 03/23/2024 Susan Crowdy Myalgia M79.10 ; Essential hypertension I10 ; Mixed hyperlipidemia E78.2 ; Hyperglycemia R73.9 ; Postmenopausal Z78.0 ; Encounter for immunization Z23 ; Statin intolerance Z78.9 ; Hair loss L65.9 ; Urinary frequency R35.0 and Osteopenia, unspecified location M85.80 [facility] [address] [place], [place] [id number] 06/21/2024 Susan Crowdy Left foot pain M79.6 72 [facility] [address] [place], [place] [id number] 03/26/2024 Susan Crowdy Osteopenia, unspecif ied location M85.80 [facility] [address] [place], [place] [id number] 04/12/2024 Cindy Negro [facility] [address] [place], [place] [id number] 06/22/2024 Susan Crowdy [facility] [address] [place], [place] [id number] 06/25/2024 Susan Crowdy Left foot pain M79.6 72 [facility] [address] [place], [place] [id number] 06/27/2024 Susan Crowdy Assessments Encounter Date Diagnosis (ICD Code) Assessment Notes Treatment Notes Treatment Clinical Notes Section Notes 03/23/2024 Myalgia (ICD-10 - M79.10) Patient states she continues with muscle cramps. She thinks it is her statin. She would like to try something different. 03/26/2024 Osteopenia, unspecified location (ICD-10 - M85.80) 06/25/2024 Left foot pain (ICD-10 - M79.672) 06/21/2024 Left foot pain (ICD-10 - M79.672) This is likely gout. WBC is not elevated indication infection. Her father has a hx of gout. Will give a steroid shot today and start on a steroid dosepack tomorrow. 03/23/2024 Mixed hyperlipidemia (ICD-10 - E78.2) She would like to try an injection rather than taking a pill as she has not been able to tolerate the statin due to muscle aches. 03/23/2024 Essential hypertension (ICD-10 - I10) 03/23/2024 Hyperglycemia (ICD-10 - R73.9) 03/23/2024 Postmenopausal (ICD-10 - Z78.0) 03/23/2024 Encounter for immunization (ICD-10 - Z23) 03/23/2024 Statin intolerance (ICD-10 - Z78.9) 03/23/2024 Hair loss (ICD-10 - L65.9) 03/23/2024 Urinary frequency (ICD-10 - R35.0) 03/23/2024 Osteopenia, unspecified location (ICD-10 - M85.80) Patient states she cannot tolerate the oral medication for osteopenia. It causes her bones to ache and upsets her stomach. She would like to try an injection if possible Plan Of Treatment No Information Insurance Providers Payer Name Payer Address Payer Phone Subscriber Number Group Number Insured Name Patient Relationship to Insured Coverage Start Date Coverage End Date [facility] [address] [place] [address] [id number] EMILY WALKER Self - patient is the insured Medications Administered Medication Instructions Date of Administration Dosage Notes Dexamethasone 06/21/2024 1 mL Medical (General) History Medical History History ICD Code plantar fasciitis right foot- dx by Dr. Patino 2020 Surgical History Surgery Date(Month/Year) tonsillectomy vaginal scraping by dr. amor july
== END 2024-12-05 23:59 | disposition home or self-care (01) ==
LOC: LAB.DROPOF 12-06 10:34
PROVIDERS: PCP Student in an Organized Health Care Education/Training Program; Visit Provider Student in an Organized Health Care Education/Training Program
DX: R50.9 Fever, unspecified (principal)
CPT/HCPCS: 87636